=== PATIENT | male | born 1995 | race African-American/Black ===

== ENCOUNTER 2017-05-02 12:03 | Emergency (ER) | payer SELFPAY ==
[2017-05-02] MEDS ORDERED: Sulfameth/Trimethoprim DS 800-160mg TAB ONE (13:05)
[2017-05-02] MEDS ORDERED: Bacitracin Zinc 1 Packet ONE (13:05)
[2017-05-02] MEDS ORDERED: Adacel (T-DAP) 0.5 ML VIAL ONE (13:06)
== END 2017-05-02 13:28 | disposition home or self-care (01) ==
LOC: ERS 12:03
DX: S61.215A Laceration without foreign body of left ring finger without damage to nail, initial encounter (principal); W26.9XXA Contact with unspecified sharp object(s), initial encounter; Y93.41 Activity, dancing
CPT/HCPCS: 90471; 90715

== ENCOUNTER 2021-04-23 11:06 | Emergency (ER) | payer OTHER, SELFPAY | END 2021-04-23 11:44 | disposition home or self-care (01) | LOC: ERS 11:06 | DX: M54.5 Low back pain (principal); X50.0XXA Overexertion from strenuous movement or load, initial encounter; Y92.69 Other specified industrial and construction area as the place of occurrence of the external cause | CPT/HCPCS: 99281 ==

== ENCOUNTER 2025-02-25 09:02 | Emergency (ER) | payer SELFPAY ==
[2025-02-25] MEDS ORDERED: Ketorolac Tromethamine 30 MG (1 mL) VIAL ONE (11:22)
[2025-02-25] MEDS ORDERED: Dexamethasone 10 MG/ML VIAL ONE (11:22)
[2025-02-25] MEDS ORDERED: Iopamidol-370 76% 500 ML MDV (1 ML CHARGE) ONE (11:27)
[2025-02-25 11:39] LABS: #Basophils 0.04 10x3/uL (0.0-0.2); #Eosinophils 0.08 10x3/uL (0.0-0.7); #Monocytes 0.60 10x3/uL (0.11-0.59); #Neutrophils 4.14 10x3/uL (1.40-6.50); %Basophils 0.6 % (0.0-1.0); %Eosinophils 1.2 % (0.0-10.0); %Lymphocytes 28.1 % (21.0-51.0); %Monocytes 8.9 % (0.0-10.0); %Neutrophils 61.1 % (42.0-75.0); Hematocrit 45.9 % (42.0-52.0); Hemoglobin 15.9 g/dL (14.0-18.0); Mean Corpuscular Hemoglobin 30.2 pg (27.0-31.0); Mean Corpuscular Volume 87.1 fL (78.0-98.0); Platelet Count 199 10x3/uL (130-400); Red Blood Cell (RBC) Count 5.27 mill/uL (4.70-6.10); White Blood Cell (WBC) Count 6.77 10x3/uL (4.8-10.8)
[2025-02-25] MEDS ORDERED: Lidocaine Viscous Sol 2% 15 ml UD Cup ONE (12:04)
[2025-02-25 12:09] LABS: ALT (SGPT) 37 U/L (Less than 45); AST (SGOT) 33 U/L (11-34); Albumin 4.7 g/dL (3.1-4.5); Alkaline Phosphatase 75 U/L (40-110); Anion Gap 12 mmol/L (10-20); BUN (Urea Nitrogen) 11 mg/dL (8.9-20.6); Bilirubin, Total 0.6 mg/dL (0.3-1.2); Calc. Creatinine Clearance 0 mL/min (70-130); Calcium 9.2 mg/dL (7.8-10.44); Carbon Dioxide 24 mmol/L (22-29); Chloride 104 mmol/L (98-107); Globulin 4.1 g/dL (2.4-3.5); Glucose 102 mg/dL (70-105); Potassium 3.7 mmol/L (3.5-5.1); Sodium 136 mmol/L (136-145)
[2025-02-25] MEDS ORDERED: Boostrix 0.5 ML (Tdap) VIAL (>/=7 yrs of age) ONE (13:12)
[2025-02-25] MEDS ORDERED: Amoxicillin/Potassium Clav 875 MG TAB ONE (13:24)
== END 2025-02-25 14:24 | disposition home or self-care (01) ==
LOC: ERS 09:02
DX: K04.7 Periapical abscess without sinus (principal); Z23 Encounter for immunization
CPT/HCPCS: 41800; 70491; 80053; 85025; 90471; 90715; 96374; J1100; J1885; Q9967